=== PATIENT | male | born 1975 | race Caucasian/White ===

== ENCOUNTER 2017-06-26 19:44 | Emergency (ER) | payer BC, OTHER ==
[~2017-06-26] VITALS: Ht 177.8 cm; Wt 95.5 kg
[2017-06-26 19:47] VITALS: Ht 177.8 cm; Wt 95.5 kg
--- NOTE | 2017-06-26 21:18 | RADRPT ---
PROCEDURE: XR Hand. CLINICAL INDICATION: Right hand pain. Deformity of the third finger. TECHNIQUE: Three views. Frontal, lateral, and oblique images of the right hand were obtained. COMPARISON: No prior studies are available for comparison. FINDINGS: There is no fracture or dislocation. The soft tissues are normal. The articular surfaces are intact. There is a flexion deformity of the third distal interphalangeal joint. There is no lytic or blastic lesion. There is no radiopaque foreign body. IMPRESSION: 1. Flexion deformity of the third distal interphalangeal joint. 2. Otherwise unremarkable images of the right hand. RPTAT: QQ .Anton Bloom MD, MD Date Time Electronically viewed and signed by .Anton Bloom MD, on 06/26/2017 21:18 .R/
[2017-06-26] MEDS ORDERED: IBUP-1542 PO (21:44)
--- NOTE | 2017-06-26 21:56 | ERD ---
ER Documentation Chief Complaint Chief Complaint right middle finger injury HPI This is a 42-year-old male presents to the ER after he hurt his finger while taking off his seatbelt earlier today. Patient states that he noticed that his right middle finger was bent at the last joint. He denies any pain. He denies any numbness or tingling of his finger. ROS 12 point review of systems was done, all negative except per HPI. Medications Home Meds Active Scripts Ibuprofen* (Motrin*) 600 Mg Tab, 600 MG PO Q6, #30 TAB Prov:STACY TERRY 06/26/17 Allergies Allergies: Coded Allergies: No Known Allergy (Unverified , 06/26/17) PMhx/Soc Medical and Surgical Hx: pt denies Medical Hx, pt denies Surgical Hx History of Surgery: No Anesthesia Reaction: No Hx Neurological Disorder: No Hx Respiratory Disorders: No Hx Cardiac Disorders: No Hx Psychiatric Problems: No Hx Miscellaneous Medical Probl: No Hx Alcohol Use: Yes (social) Hx Substance Use: Yes (social, marijuana) Hx Tobacco Use: No Smoking Status: Never smoker Physical Exam Vitals Vital Signs Date Time Temp Pulse Resp B/P Pulse Ox O2 Delivery O2 Flow Rate FiO2 06/26/17 19:47 97.7 83 20 139/82 100 Physical Exam GENERAL: The patient is well developed and appropriate for usual state of health , in no apparent distress. HEENT: Atraumatic CHEST: Clear to auscultation bilaterally. There are no rales, wheezes or rhonchi. HEART: Regular rate and rhythm. No murmurs, clicks, rubs or gallops. EXTREMITIES: No swelling/erythema, atrophy . No surface trauma, open wounds, nail avulsion, tissue avulsion, partial or complete amputation, subungal hematoma, bony deformity. Normal cascade of fingers. Patient's 3rd digit appears to have a mallet deformity. FDS and FDP intact against resistance. No focal fullness, throbbing pain, swelling of fingertip. Normal pulses and capillary refill. C6, C7, C8 are intact to strength and sensation. NEURO: Alert and oriented SKIN: The skin is warm and dry. Results [address] [address] Radiology Main Line: [phone] DIAGNOSTIC IMAGING REPORT Patient: TIM BOWLING : 1975 Age: 42 Sex: M MR #: [id number] DOS: 06/26/17 0000 Ordering MD: STACY TERRY PA-C Location: [facility] Room/Bed: PROCEDURE: XR Hand. CLINICAL INDICATION: Right hand pain. Deformity of the third finger. TECHNIQUE: Three views. Frontal, lateral, and oblique images of the right hand were obtained. COMPARISON: No prior studies are available for comparison. FINDINGS: There is no fracture or dislocation. The soft tissues are normal. The articular surfaces are intact. There is a flexion deformity of the third distal interphalangeal joint. There is no lytic or blastic lesion. There is no radiopaque foreign body. IMPRESSION: 1. Flexion deformity of the third distal interphalangeal joint. 2. Otherwise unremarkable images of the right hand. RPTAT: QQ .Anton Bloom MD, MD Date Time Electronically viewed and signed by .Anton Bloom MD, MD on 06/26/2017 21:18 .R/ CC: STACY TERRY Procedures/MDM This is a 42-year-old male presents to the ER with right middle finger deformity. Patient does appear to have a mallet finger. He was put in a metal splint. Suspicion for fracture or dislocation is low, as patient's x-ray is normal. Patient did have normal range of motion of his finger and he is neurovascularly intact. He was neurovascularly intact before and after splint application. He will be sent home with ibuprofen. He was advised to follow-up with an orthopedic doctor. Also needs to follow-up with his primary care doctor within 1-2 days return to ER sooner if symptoms worsen. My medical decision making shared with the patient he understands and agrees with plan. Departure Diagnosis: Primary Impression: Mallet finger Condition: Stable Patient Instructions: Mallet Finger Additional Instructions: Call your primary care doctor TOMORROW for an appointment during the next 1-2 days.See the doctor sooner or return here if your condition worsens before your appointment time. STACY TERRY Jun 26, 2017 21:55
== END 2017-06-26 22:00 | disposition home or self-care (01) ==
LOC: FTE 19:44
DX: M20.011 Mallet finger of right finger(s) (principal); X58.XXXA Exposure to other specified factors, initial encounter; Y92.9 Unspecified place or not applicable